=== PATIENT | male | born 1985 | race Caucasian/White ===

== ENCOUNTER 2018-07-26 19:26 | Emergency (ER) | payer SELFPAY ==
[~2018-07-26] VITALS: Ht 185.4 cm; Wt 100.2 kg
--- NOTE | 2018-07-26 19:33 | NUR ---
TO [facility]ON[facility] FOR PREBOOK. PT CLEARLY AGIATED, UNABLE TO GET BP AT THIS TIME. PT INTO CHAIR, ER EVALUATING PT.
--- NOTE | 2018-07-26 19:36 | NUR ---
PATIENT BIB [employer]. PATIENT EXAMINED BY DR. FITZGERALD. PATIENT MEDICALLY CLEARED AND RELEASED IN CUSTODY IN STABLE CONDITION. ORIGINAL PRE-BOOK FORM GIVEN TO OFFICER BRANDON.
--- NOTE | 2018-07-26 19:37 | NUR ---
Patient discharged with v/s stable. Written and verbal after care instructions given and explained. Patient verbalized understanding. Police with in custody. All questions addressed prior to discharge. Advised to follow up with PMD.
== END 2018-07-26 19:37 ==
LOC: MED 19:26
DX: R45.4 Irritability and anger (principal); Z02.89 Encounter for other administrative examinations
CPT/HCPCS: 99283